=== PATIENT | female | born 1975 | race Caucasian/White ===

== ENCOUNTER 2016-06-17 11:27 | Day surgery (SDC) | payer OTHER ==
[~2016-06-17] VITALS: Ht 167.6 cm; Wt 73.5 kg
[~2016-06-17 11:27] MED LIST: IRON325 MG PO; ZANTAC150 MG PO
[2016-06-17] MEDS ORDERED: VICODIN 5-3001 EACH PO (11:42)
[2016-06-17] MEDS ORDERED: MOTRIN800 MG PO (11:42)
[2016-06-17 12:02] LABS: EOSINOPHIL (%) 0.5 % (0-5); HEMATOCRIT 36.9 % (36.0-46.0); IMMATURE GRANULOCYTE (%) 0.3 % (0.0-0.7); INSTRUMENT ABS NEUTROPHIL CT 4.6 K/uL; LYMPHOCYTE COUNT 2.1 K/uL (1.0-2.8); MCH 26.1 PG (29.0-34.0); MCHC 31.2 G/DL (30.0-36.0); MCV 83.7 FL (83-99); MEAN PLAT.VOLUME 10.5 uM^3 (9.5-12.4); MONOCYTE (%) 6.7 % (3-12); MONOCYTE COUNT 0.5 K/uL (0-0.8); NEUTROPHIL (%) 63.1 % (45-76); NEUTROPHIL COUNT 4.6 K/uL (1.8-6.4); PLATELET COUNT 318 K/uL (156-360); RBC DIS.WIDTH-CV 13.2 % (11.8-14.6); RBC DIS.WIDTH-SD 40.8 % (39-53); RED BLOOD COUNT 4.41 M/uL (3.80-5.20); WHITE BLOOD COUNT 7.4 K/uL (4.1-10.2)
[2016-06-17 12:14] VITALS: BP 118/68
[2016-06-17 13:41] VITALS: BP 103/60
[2016-06-17 14:54] VITALS: BP 110/57
== END 2016-06-17 14:58 | disposition home or self-care (01) ==
LOC: SDC 11:27
PROVIDERS: Obstetrics & Gynecology
PROC: 10D17ZZ Extraction of Products of Conception, Retained, Via Natural or Artificial Opening (ICD-10-PCS; principal; 2016-06-17)
DX: O03.4 Incomplete spontaneous abortion without complication (principal); Z82.49 Family history of ischemic heart disease and other diseases of the circulatory system; Z83.49 Family history of other endocrine, nutritional and metabolic diseases
CPT/HCPCS: 85025; 86850; 86900; 86901; 88305; J1100; J1885; J2405; J3010

== ENCOUNTER → 2017-09-13 | Outpatient (CLI) | payer OTHER ==
[~2017-09-13] MED LIST changes: +MOTRIN800 MG PO; +VICODIN 5-3001 EACH PO
== END | disposition home or self-care (01) ==
LOC: CDC 10:08
DX: Z01.810 Encounter for preprocedural cardiovascular examination (principal); C50.811 Malignant neoplasm of overlapping sites of right female breast; Z17.0 Estrogen receptor positive status [ER+]
CPT/HCPCS: 93000

== ENCOUNTER 2017-09-21 08:37 | Day surgery (SDC) | payer OTHER ==
[~2017-09-21] VITALS: Ht 167.6 cm; Wt 65.0 kg
[2017-09-21 09:00] VITALS: BP 98/65
[2017-09-21 18:10] VITALS: BP 96/54
[2017-09-21 20:17] VITALS: BP 100/59
[2017-09-22 00:22] VITALS: BP 96/58
[2017-09-22 04:15] VITALS: BP 98/64
[2017-09-22 06:38] LABS: HEMATOCRIT 35.4 % (36.0-46.0); MCH 25.8 PG (29.0-34.0); MCHC 31.1 G/DL (30.0-36.0); MCV 82.9 FL (83-99); PLATELET COUNT 266 K/uL (156-360); RBC DIS.WIDTH-CV 13.8 % (11.8-14.6); RBC DIS.WIDTH-SD 41.6 % (39-53); RED BLOOD COUNT 4.27 M/uL (3.80-5.20); WHITE BLOOD COUNT 10.8 K/uL (4.1-10.2)
[2017-09-22] MEDS ORDERED: ENDOCET 5-3251 EACH PO (08:41)
[2017-09-22 08:57] VITALS: BP 92/58
== END 2017-09-22 12:56 | disposition home or self-care (01) ==
LOC: SDC 08:37 → NUC 10:30 → SDC 10:30 → 2EASTP 16:51 → ENRESERV 17:08 → 2EASTP 09-22 12:56
PROVIDERS: Surgery
PROC: 0HTT0ZZ Resection of Right Breast, Open Approach (ICD-10-PCS; principal; 2017-09-21)
PROC: 07B50ZX Excision of Right Axillary Lymphatic, Open Approach, Diagnostic (ICD-10-PCS; principal; 2017-09-21)
DX: C50.811 Malignant neoplasm of overlapping sites of right female breast (principal); Z17.0 Estrogen receptor positive status [ER+]; C77.3 Secondary and unspecified malignant neoplasm of axilla and upper limb lymph nodes; K21.9 Gastro-esophageal reflux disease without esophagitis; K80.20 Calculus of gallbladder without cholecystitis without obstruction
CPT/HCPCS: 78195; 78999; 84702; 85027; 88305; 88309; A9541; G0378; J0131; J0330; J0690; J1100; J2250; J2405; J3010; J3480; Q0175; S0020

== ENCOUNTER 2017-10-13 10:37 | Day surgery (SDC) | payer OTHER ==
[~2017-10-13] VITALS: Ht 167.6 cm; Wt 65.0 kg
[~2017-10-13 10:37] MED LIST changes: +ENDOCET 5-3251 EACH PO
== END 2017-10-13 13:15 | disposition home or self-care (01) ==
LOC: CATH 10:37
DX: Z45.2 Encounter for adjustment and management of vascular access device (principal); I87.8 Other specified disorders of veins; C50.911 Malignant neoplasm of unspecified site of right female breast; J45.909 Unspecified asthma, uncomplicated
CPT/HCPCS: C1788; C1894; J0690; J1644; J2250; J3010; S0020